=== PATIENT | female | born 1985 | race Caucasian/White ===

== ENCOUNTER 2024-10-23 14:57 | Inpatient (IN) | payer BC ==
[2024-10-23] MEDS: SODIUM CHLORIDE 0.9% 1,000 ML IV SCH ×2 (16:01→18:51)
[2024-10-23] MEDS: ONDANSETRON 4 MG/2 ML VIAL IVP STA (16:01)
[2024-10-23] MEDS: KETOROLAC 15 MG/ML 1 ML VIAL IVP STA (16:03)
[2024-10-23] MEDS: MORPHINE SULFATE 4 MG/ML SYRINGE IVP STA ×2 (16:05→18:48)
[2024-10-23 16:08] LABS: Basophils # (A) 0.05 10*3/uL (0.00-0.10); Basophils % (A) 0.4 %; Eosinophils # (A) 0.06 10*3/uL (0.04-0.35); Eosinophils % (A) 0.5 %; HCT 34.8 % (37.2-46.3); HGB 11.8 g/dL (12.0-15.0); Lymphocytes # (A) 0.90 10*3/uL (0.90-5.00); Lymphocytes % (A) 7.6 %; MCH 33.8 pg (27.0-32.0); MCHC 33.9 g/dL (32.0-37.0); MCV 99.7 fL (80.0-97.0); Monocytes # (A) 0.90 10*3/uL (0.20-1.00); Monocytes % (A) 7.6 %; Neutrophils # (A) 9.83 10*3/uL (1.80-7.70); Neutrophils % (A) 83.6 %; Platelet Count 270 10*3/uL (140-440); RBC 3.49 10*6/uL (4.10-5.20); RDW 20.9 % (11.5-14.5); WBC 11.78 10*3/uL (4.50-10.00)
[2024-10-23 16:18] LABS: ALT 20 U/L (4-34); AST 54 U/L (14-36); African American GFR (CKD) 85 (>60 ml/min/1.73 sqM); Albumin 3.8 g/dL (3.5-5.0); Alkaline Phosphatase 85 U/L (38-126); Anion Gap 16 mmol/L; Blood Urea Nitrogen 16 mg/dL (7-17); Calcium 8.5 mg/dL (8.4-10.2); Carbon Dioxide 15 mmol/L (22-30); Chloride 108 mmol/L (98-107); Glucose 82 mg/dL (74-99); Non-African American GFR(CKD) 74 (>60 ml/min/1.73 sqM); Potassium 3.8 mmol/L (3.5-5.1); Sodium 139 mmol/L (137-145); Total Protein 6.2 g/dL (6.3-8.2)
[2024-10-23 16:18] LABS: Bacteria,Urine Rare /hpf; Bilirubin,Urine Negative (Negative); Blood,Urine Moderate (Negative); Color,Urine Dark Yellow; Glucose,Urine (UA) Negative (Negative); Ketones,Urine Negative (Negative); Leukocyte Esterase,Urine Large (Negative); Mucus,Urine Occasional /hpf; Nitrite,Urine Positive (Negative); PH, Urine 6.5 (5.0-8.0); Protein,Urine Trace (Negative); RBC,Urine 3 /hpf (0-5); Specific Gravity,Urine 1.018 (1.001-1.035); Squamous Epithelial Cell,Urine 3 /hpf (0-4); Urobilinogen,Urine <2.0 mg/dL (<2.0); WBC,Urine >182 /hpf (0-5)
[2024-10-23 16:44] LABS: Lipase 8292 U/L (23-300)
--- NOTE | 2024-10-23 16:50 | ED ---
Abdominal Pain HPI - General Chief Complaint: Abdominal Pain Stated Complaint: L flank pain Time Seen by Provider: 10/23/24 15:15 Source: patient Mode of arrival: ambulatory - History of Present Illness Initial Comments: 39-year-old female with no reported past medical history who presents emergency department with left lower quadrant abdominal pain. States the pain started last night. She has been having some urinary frequency over the past couple of days and therefore thought that she had a urinary tract infection. She started taking Azo. The pain got worse today at approximately 10:30 AM. She has no associated nausea, vomiting or diarrhea. No fevers. No hematuria. No vaginal bleeding or discharge. No diarrhea, constipation, black or bloody stools. [place] States that she has been drinking heavily for the holidays. No other alleviating, precipitating or modifying factors - Related Data Home Medications Medication Instructions Recorded Confirmed Cetirizine HCl [Zyrtec] 10 mg PO DAILY 10/23/24 10/23/24 Naproxen [EC-Naprosyn] 500 mg PO BID PRN 10/23/24 10/23/24 Omeprazole 40 mg PO DAILY 10/23/24 10/23/24 Topiramate 100 mg PO BID 10/23/24 10/23/24 buPROPion HCL [buPROPion HCL SR] 150 mg PO Q12HR 10/23/24 10/23/24 Allergies Allergy/AdvReac Type Severity Reaction Status Date / Time No Known Allergies Allergy Verified 10/23/24 18:31 Review of Systems ROS Statement: Those systems with pertinent positive or pertinent negative responses have been documented in the HPI. ROS Other: All systems not noted in ROS Statement are negative. Past Medical History Past Medical History: No Reported History History of Any Multi-Drug Resistant Organisms: None Reported Past Surgical History: No Surgical Hx Reported Past Psychological History: ADD/ADHD Smoking Status: Current every day smoker Past Alcohol Use History: Occasional Past Drug Use History: None Reported General Exam General appearance: alert, in no apparent distress Head exam: Present: atraumatic, normocephalic, normal inspection Eye exam: Present: normal appearance, PERRL, EOMI. Absent: scleral icterus, conjunctival injection, periorbital swelling ENT exam: Present: normal exam, mucous membranes moist Neck exam: Present: normal inspection. Absent: tenderness, meningismus, lymphadenopathy Respiratory exam: Present: normal lung sounds bilaterally. Absent: respiratory distress, wheezes, rales, rhonchi, stridor Cardiovascular Exam: Present: regular rate, normal rhythm, normal heart sounds. Absent: systolic murmur, diastolic murmur, rubs, gallop, clicks GI/Abdominal exam: Present: soft, tenderness (epigastric and rlq), normal bowel sounds. Absent: distended, guarding, rebound, rigid Extremities exam: Present: normal inspection, full ROM, normal capillary refill. Absent: tenderness, pedal edema, joint swelling, calf tenderness Back exam: Present: normal inspection Neurological exam: Present: alert, oriented X3, CN II-XII intact Psychiatric exam: Present: normal affect, normal mood Skin exam: Present: warm, dry, intact, normal color. Absent: rash Course Vital Signs 10/23/24 10/23/24 10/23/24 14:59 18:57 22:19 Temperature 98.2 F 97.7 F Pulse Rate 108 H 99 94 Respiratory 18 16 17 Rate Blood Pressure 141/98 116/78 131/96 O2 Sat by Pulse 98 95 96 Oximetry Medical Decision Making - Medical Decision Making Was pt. sent in by a medical professional or institution (, PA, PLATEN DRIER OPERATOR, urgent care, hospital, or senior care...) When possible be specific @ -No Did you speak to anyone other than the patient for history (EMS, parent, family, police, friend...)? What history was obtained from this source @ -Spoke with spouse for history Did you review nursing and triage notes (agree or disagree)? Why? @ -I reviewed and agree with nursing and triage notes Were old charts reviewed (outside hosp., previous admission, EMS record, old EKG, old radiological studies, urgent care reports/EKG's, senior care records)? Report findings @ -No old charts were reviewed Differential Diagnosis (chest pain, altered mental status, abdominal pain women, abdominal pain men, vaginal bleeding, weakness, fever, dyspnea, syncope, headache, dizziness, GI bleed, back pain, seizure, CVA, palpatations, mental health, musculoskeletal)? @ -Differential Abdominal Pain Women: Appendicitis, Cholecystitis, diverticulosis, ischemic bowel, pancreatitis, hepatitis, UTI, gastroenteritis, AAA, incarcerated hernia, bowel obstruction, constipation, inflammatory bowel, hepatitis, peptic ulcer disease, splenic infarction, perforated viscus, vulvitis, ovarian torsion, PID, kidney stone, placenta abruption, this is not meant to be an all-inclusive list EKG interpreted by me (3pts min.). @ -Not done X-rays interpreted by me (1pt min.). @ -None done CT interpreted by me (1pt min.). @ -yes which demonstrates acute pancreatitis and a left-sided ureteral stone U/S interpreted by me (1pt. min.). @ -None done What testing was considered but not performed or refused? (CT, X-rays, U/S, labs)? Why? @ -None What meds were considered but not given or refused? Why? @ -None Did you discuss the management of the patient with other professionals ( professionals i.e. , PA, PLATEN DRIER OPERATOR, lab, RT, psych nurse, social media senior associate, surgical appliance fitter, teacher, housing management officer, case preparer and liner)? Give summary @ -Spoke with Dr. Delacruz for admission Was smoking cessation discussed for >3mins.? @ -No Was critical care preformed (if so, how long)? @ -No Were there social determinants of health that impacted care today? How? (Homelessness, low income, unemployed, alcoholism, drug addiction, transportation, low edu. Level, literacy, decrease access to med. care, [place] [facility], rehab)? @ -No Was there de-escalation of care discussed even if they declined (Discuss DNR or withdrawal of care, Hospice)? DNR status @ -No What co-morbidities impacted this encounter? (DM, HTN, Smoking, COPD, CAD, Cancer, CVA, ARF, Chemo, Hep., AIDS, mental health diagnosis, sleep apnea, morbid obesity)? @ -None Was patient admitted / discharged? Hospital course, mention meds given and route, prescriptions, significant lab abnormalities, going to OR and other pertinent info. @ -Upon arrival patient seen and evaluated in room 10. Thorough history and physical exam was performed. IV access was established. Patient was provided with 4 mg of morphine and 4 mg of Zofran for pain and nausea. Laboratory studies are conducted. Patient does have significant elevated lipase. Alcohol is elevated. CT performed which demonstrates pancreatitis and left-sided ureteral stone. Recommended admission for fluids, pain control. Patient was agreeable to this. Spoke with Dr. Sawana for admission Undiagnosed new problem with uncertain prognosis? @ -No Drug Therapy requiring intensive monitoring for toxicity (Heparin, Nitro, Insulin, Cardizem)? @ -No Were any procedures done? @ -No Diagnosis/symptom? @ -Abdominal pain, acute alcohol intoxication, acute pancreatitis, acute left- sided ureteral stone acute UTI Acute, or Chronic, or Acute on Chronic? @ -Acute Uncomplicated (without systemic symptoms) or Complicated (systemic symptoms)? @ -Complicated Side effects of treatment? @ -No Exacerbation, Progression, or Severe Exacerbation? @ -No Poses a threat to life or bodily function? How? (Chest pain, [place], [place], pneumonia, PE, COPD, DKA, ARF, appy, cholecystitis, CVA, Diverticulitis, Homicidal, Suicidal, threat to staff... and all critical care pts) @ -No - Lab Data Result diagrams: 10/23/24 15:53 10/23/24 15:53 Lab Results 10/23/24 10/23/24 10/23/24 Range/Units 15:52 15:52 15:52 WBC (4.50-10.00) 10*3/uL RBC (4.10-5.20) 10*6/uL Hgb (12.0-15.0) g/dL Hct (37.2-46.3) % MCV (80.0-97.0) fL MCH (27.0-32.0) pg MCHC (32.0-37.0) g/dL Plt Count (140-440) 10*3/uL MPV (9.5-12.2) fL Immature Gran % (Auto) % Neutrophils % % Lymphocytes % % Monocytes % % Eosinophils % % Basophils % % Immature Gran # (0.00-0.04) 10*3/uL Neutrophils # (1.80-7.70) 10*3/uL Lymphocytes # (0.90-5.00) 10*3/uL Monocytes # (0.20-1.00) 10*3/uL Eosinophils # (0.04-0.35) 10*3/uL Basophils # (0.00-0.10) 10*3/uL Sodium (137-145) mmol/L Potassium (3.5-5.1) mmol/L Chloride (98-107) mmol/L Carbon Dioxide (22-30) mmol/L Anion Gap mmol/L BUN (7-17) mg/dL Creatinine (0.52-1.04) mg/dL Est GFR (CKD-EPI)AfAm (>60 ml/min/1.73 sqM) Est GFR (CKD-EPI)NonAf (>60 ml/min/1.73 sqM) Glucose (74-99) mg/dL Lactic Ac Sepsis Rflx Plasma Lactic Acid Ronni 2.7 H* (0.7-2.0) mmol/L Calcium (8.4-10.2) mg/dL Total Bilirubin (0.2-1.3) mg/dL AST (14-36) U/L ALT (4-34) U/L Alkaline Phosphatase (38-126) U/L Total Protein (6.3-8.2) g/dL Albumin (3.5-5.0) g/dL Lipase (23-300) U/L Urine Color Dark Yellow Urine Appearance Cloudy H (Clear) Urine pH 6.5 (5.0-8.0) Ur Specific Walden 1.018 (1.001-1.035) Urine Protein Trace H (Negative) Urine Glucose (UA) Negative (Negative) Urine Ketones Negative (Negative) Urine Blood Moderate H (Negative) Urine Nitrite Positive H (Negative) Urine Bilirubin Negative (Negative) Urine Urobilinogen <2.0 (<2.0) mg/dL Ur Leukocyte Esterase Large H (Negative) Urine RBC 3 (0-5) /hpf Urine WBC >182 H (0-5) /hpf Ur Squamous Epith Cells 3 (0-4) /hpf Urine Bacteria Rare H (None) /hpf Urine Mucus Occasional H (None) /hpf Urine HCG, Qual Not Detected (Not Detectd) Serum Alcohol mg/dL 10/23/24 10/23/24 10/23/24 Range/Units 15:53 15:53 16:39 WBC 11.78 H (4.50-10.00) 10*3/uL RBC 3.49 L (4.10-5.20) 10*6/uL Hgb 11.8 L (12.0-15.0) g/dL Hct 34.8 L (37.2-46.3) % MCV 99.7 H (80.0-97.0) fL MCH 33.8 H (27.0-32.0) pg MCHC 33.9 (32.0-37.0) g/dL Plt Count 270 (140-440) 10*3/uL MPV 8.8 L (9.5-12.2) fL Immature Gran % (Auto) 0.3 % Neutrophils % 83.6 % Lymphocytes % 7.6 % Monocytes % 7.6 % Eosinophils % 0.5 % Basophils % 0.4 % Immature Gran # 0.04 (0.00-0.04) 10*3/uL Neutrophils # 9.83 H (1.80-7.70) 10*3/uL Lymphocytes # 0.90 (0.90-5.00) 10*3/uL Monocytes # 0.90 (0.20-1.00) 10*3/uL Eosinophils # 0.06 (0.04-0.35) 10*3/uL Basophils # 0.05 (0.00-0.10) 10*3/uL Sodium 139 (137-145) mmol/L Potassium 3.8 (3.5-5.1) mmol/L Chloride 108 H (98-107) mmol/L Carbon Dioxide 15 L (22-30) mmol/L Anion Gap 16 mmol/L BUN 16 (7-17) mg/dL Creatinine 0.96 (0.52-1.04) mg/dL Est GFR (CKD-EPI)AfAm 85 (>60 ml/min/1.73 sqM) Est GFR (CKD-EPI)NonAf 74 (>60 ml/min/1.73 sqM) Glucose 82 (74-99) mg/dL Lactic Ac Sepsis Rflx Y Plasma Lactic Acid Ronni (0.7-2.0) mmol/L Calcium 8.5 (8.4-10.2) mg/dL Total Bilirubin 0.7 (0.2-1.3) mg/dL AST 54 H (14-36) U/L ALT 20 (4-34) U/L Alkaline Phosphatase 85 (38-126) U/L Total Protein 6.2 L (6.3-8.2) g/dL Albumin 3.8 (3.5-5.0) g/dL Lipase 8292 H (23-300) U/L Urine Color Urine Appearance (Clear) Urine pH (5.0-8.0) Ur Specific [place] (1.001-1.035) Urine Protein (Negative) Urine Glucose (UA) (Negative) Urine Ketones (Negative) Urine Blood (Negative) Urine Nitrite (Negative) Urine Bilirubin (Negative) Urine Urobilinogen (<2.0) mg/dL Ur Leukocyte Esterase (Negative) Urine RBC (0-5) /hpf Urine WBC (0-5) /hpf Ur Squamous Epith Cells (0-4) /hpf Urine Bacteria (None) /hpf Urine Mucus (None) /hpf Urine HCG, Qual (Not Detectd) Serum Alcohol 130 mg/dL Disposition Clinical Impression: Pancreatitis, Alcohol intoxication, Ureteral stone, Abnormal urinalysis Disposition: ADMITTED IP TO THIS [facility] Condition: Stable Is patient prescribed a controlled substance at d/c from ED?: No Time of Disposition: 18:08 Decision to Admit Reason: Admit from EC Decision Date: 10/23/24 Decision Time: 18:08
--- NOTE | 2024-10-23 17:26 | CT ---
EXAMINATION TYPE: CT abdomen pelvis w con DATE OF EXAM: 10/23/2024 5:00 PM COMPARISON: None CLINICAL INDICATION: Female, 39 years old with history of abd pain, llq; LLQ pain since this AM TECHNIQUE: Axial CT abdomen pelvis w con;Sagittal and coronal reformats were created on a separate w orkstation. Contrast used:100ml mL of Isovue 300 with IV Contrast, (none if empty) Oral contrast used: without Oral Contrast (none if empty) CT DLP: 707.7 mGycm, Automated exposure control for dose reduction was used. FINDINGS: LOWER CHEST: Unremarkable ABDOMEN LIVER: Unremarkable GALLBLADDER AND BILE DUCTS: Unremarkable. PANCREAS: Unremarkable. Extensive fat stranding changes in the upper abdomen that the center on the p ancreas. SPLEEN: Unremarkable. ADRENAL GLANDS: Unremarkable. KIDNEYS AND URETERS: Mild right hydronephrosis secondary to 3 mm right ureterovesicular junction calc ulus. No left renal calculus. PELVIS BLADDER: No evidence for wall thickening or mass given limitations of exam. REPRODUCTIVE: Unremarkable. ABDOMEN & PELVIS STOMACH AND BOWEL: No evidence of bowel obstruction. PERITONEUM/RETROPERITONEUM: No evidence of pneumoperitoneum or free fluid. VASCULATURE: No evidence of aortic aneurysm. MUSCULOSKELETAL: No acute osseous abnormalities LYMPH NODES: No gross evidence for lymphadenopathy. SOFT TISSUE/ABDOMINAL WALL: Unremarkable IMPRESSION: 1. Mild right hydronephrosis secondary obstructing 3 mm calculus at the ureterovesicular junction. 2. Extensive fat stranding changes in the upper abdomen correlate with serum lipase to exclude pancr eatitis. This free fluid around the pancreas could be secondary to calyceal rupture from right hydron ephrosis. 3. No evidence for acute process in the Left lower quadrant to explain provided history of left lowe r quadrant pain. [facility], , 10/23/2024 5:23 PM
[2024-10-23] MEDS ORDERED: NALOXONE 0.4 MG/ML 1 ML VIAL IV PRN (18:11)
[2024-10-23] MEDS: cefTRIAXone IN SWFI 1,000 MG/10 ML SYRINGE IVP STA (18:48)
[2024-10-23] MEDS ORDERED: LORazepam 1 MG/0.5 ML VIAL IV PRN ×3 (19:11)
[2024-10-23] MEDS: SODIUM BICARB 8.4% 50 ML SYR (1 MEQ/ML) IV STA (19:41)
[2024-10-23] MEDS: DEXTROSE 5%-0.45% NACL 1,000 ML IV SCH (19:44)
[2024-10-23] MEDS: FOLIC ACID 1 MG TAB PO SCH (19:49)
[2024-10-23] MEDS: HYDROmorphone 1 MG/ML 1 ML SYRINGE IVP PRN (20:20)
[2024-10-23 20:27] LABS: INR 1.2 (<1.2); Prothrombin Time 12.8 sec (10.0-12.5)
[2024-10-23] MEDS: KETOROLAC 15 MG/ML 1 ML VIAL IVP PRN (23:54)
[2024-10-24] MEDS: THIAMINE 100 MG TAB PO SCH (07:49)
[2024-10-24] MEDS: ONDANSETRON 4 MG/2 ML VIAL IVP PRN (08:02)
--- NOTE | 2024-10-24 08:25 | P.HPIM ---
History of Present Illness H&P Date: 10/23/24 Chief Complaint: Abdominal pain This is a 39-year-old female patient with no significant past medical history except for alcohol use who presents to the ED complaining of left lower quadrant abdominal pain. Patient reports that she has been having pain since yesterday associated with urinary frequency for the past few days. Patient thought that she may have a urine infection. She presents today because her pain is worse associated with chills. She denies having any nausea, emesis or diarrhea. No fevers. No vaginal bleeding or discharge. No change in bowel habits. Patient reports that she has been drinking heavily for the holiday she reports not drinking daily but occasionally. Upon arrival to the ED, patient was slightly tachycardic with a heart rate of 108. She was hemodynamically stable otherwise. Labs done showing WBC of 11.78, hemoglobin of 11.8, serum carbon dioxide of 15, lactic acid of 2.7, AST 54, lipase 8200, urine analysis was abnormal, serum alcohol [address] abdomen pelvis with contrast was done showing changes suggestive of acute pancreatitis with mild right hydronephrosis secondary to 3 mm right ureterovesicular junction calculus . Patient received IV Rocephin. Urology was consulted. IV fluids were started and patient will be admitted for management of acute pancreatitis and infected kidney stone Review of system : Negative except for mentioned HPI PE: General: nontoxic, no distress, appears at stated age Derm: warm, dry, intact Head: atraumatic, normocephalic, symmetric Eyes: EOMI, anicteric sclera Mouth: no lip lesion, mucus membranes moist Cardiovascular: S1 S2 reg, no murmur, rubs, or gallops Lungs: CTA bilateral, no rales, no accessory muscle use Abdominal: soft, generalized tenderness upon palpation, no appreciable organomegaly . No guarding or rebound tenderness Extremities: no gross muscle atrophy, no edema, no contractures Neuro: Alert, Oriented, CNII-XII grossly intact, gait normal Psych: well appearing, appropriate affect Assessment and plan : - Infected kidney stone/right-sided hydronephrosis: Patient did not meet sepsis criteria Mild hydronephrosis at the right side Urology consulted and patient will continue with IV Rocephin Pending urine culture -Acute alcoholic pancreatitis: Elevated lipase of 8000 Will start with clear liquid diet Keep patient on D5 half-normal saline IV fluids Pain management - Alcohol abuse/slight elevation in AST: Serum alcohol level of 130 Patient denies history of alcohol withdrawal symptoms Will keep patient on CIWA protocol Thiamine and folic acid daily Counseling was done Will order PT level to calculate the Madrey discrimination score (which is likely low ) Repeat comprehensive metabolic panel -Slight lactic acidosis due to dehydration : Lactic acid of 2.7 Continue with IV fluid hydration and repeat lactic -Non AG metabolic acidosis : Serum CO2 of 15 Will give 2 amp of bicarb and repeat cmp CODE STATUS is full code DVT prophylaxis on SCD Disposition : Home when patient is stable Time spent : 55 min Past Medical History Past Medical History: No Reported History History of Any Multi-Drug Resistant Organisms: None Reported Past Surgical History: No Surgical Hx Reported Past Psychological History: ADD/ADHD Smoking Status: Current every day smoker Past Alcohol Use History: Occasional Past Drug Use History: None Reported Medications and Allergies Home Medications Medication Instructions Recorded Confirmed Type Cetirizine HCl [Zyrtec] 10 mg PO DAILY 10/23/24 10/23/24 History Naproxen [EC-Naprosyn] 500 mg PO BID PRN 10/23/24 10/23/24 History Omeprazole 40 mg PO DAILY 10/23/24 10/23/24 History Topiramate 100 mg PO BID 10/23/24 10/23/24 History buPROPion HCL [buPROPion HCL SR] 150 mg PO Q12HR 10/23/24 10/23/24 History Allergies Allergy/AdvReac Type Severity Reaction Status Date / Time No Known Allergies Allergy Verified 10/23/24 18:31 Physical Exam Vitals: Vital Signs Temp Pulse Resp BP Pulse Ox 10/23/24 18:57 99 16 116/78 95 10/23/24 14:59 98.2 F 108 H 18 141/98 98 Intake and Output 10/23/24 10/23/24 10/23/24 06:59 14:59 22:59 Other: Weight 62.596 kg Results CBC & Chem 7: 10/23/24 15:53 10/23/24 15:53 Labs: Abnormal Lab Results - Last 24 Hours (Table) 10/23/24 10/23/24 10/23/24 Range/Units 15:52 15:52 15:53 WBC 11.78 H (4.50-10.00) 10*3/uL RBC 3.49 L (4.10-5.20) 10*6/uL Hgb 11.8 L (12.0-15.0) g/dL Hct 34.8 L (37.2-46.3) % MCV 99.7 H (80.0-97.0) fL MCH 33.8 H (27.0-32.0) pg MPV 8.8 L (9.5-12.2) fL Neutrophils # 9.83 H (1.80-7.70) 10*3/uL Chloride (98-107) mmol/L Carbon Dioxide (22-30) mmol/L Plasma Lactic Acid Ronni 2.7 H* (0.7-2.0) mmol/L AST (14-36) U/L Total Protein (6.3-8.2) g/dL Lipase (23-300) U/L Urine Appearance Cloudy H (Clear) Urine Protein Trace H (Negative) Urine Blood Moderate H (Negative) Urine Nitrite Positive H (Negative) Ur Leukocyte Esterase Large H (Negative) Urine WBC >182 H (0-5) /hpf Urine Bacteria Rare H (None) /hpf Urine Mucus Occasional H (None) /hpf 10/23/24 Range/Units 15:53 WBC (4.50-10.00) 10*3/uL RBC (4.10-5.20) 10*6/uL Hgb (12.0-15.0) g/dL Hct (37.2-46.3) % MCV (80.0-97.0) fL MCH (27.0-32.0) pg MPV (9.5-12.2) fL Neutrophils # (1.80-7.70) 10*3/uL Chloride 108 H (98-107) mmol/L Carbon Dioxide 15 L (22-30) mmol/L Plasma Lactic Acid Ronni (0.7-2.0) mmol/L AST 54 H (14-36) U/L Total Protein 6.2 L (6.3-8.2) g/dL Lipase 8292 H (23-300) U/L Urine Appearance (Clear) Urine Protein (Negative) Urine Blood (Negative) Urine Nitrite (Negative) Ur Leukocyte Esterase (Negative) Urine WBC (0-5) /hpf Urine Bacteria (None) /hpf Urine Mucus (None) /hpf
[2024-10-24 09:28] LABS: HCT 34.4 % (37.2-46.3); HGB 11.1 g/dL (12.0-15.0); MCH 33.9 pg (27.0-32.0); MCHC 32.3 g/dL (32.0-37.0); MCV 105.2 FL (80.0-97.0); NRBC Per 100 WBC 0 X 10*3/uL (0.00-0.01); Platelet Count 229 X 10*3/uL (140-440); RBC 3.27 X 10*6/uL (4.10-5.20); RDW 21.1 % (11.5-14.5); WBC 10.45 X 10*3/uL (4.50-10.00)
[2024-10-24 10:09] LABS: ALT 17 U/L (8-44); AST 54 U/L (13-35); Albumin 3.6 g/dL (3.8-4.9); Albumin/Globulin Ratio 2.12 Ratio (1.60-3.17); Alkaline Phosphatase 81 U/L (41-126); Anion Gap 17.20 mmol/L (4.00-12.00); BUN/Creat Ratio 15.78 Ratio (12.00-20.00); Blood Urea Nitrogen 14.2 mg/dL (9.0-27.0); Calcium 6.5 mg/dL (8.7-10.3); Carbon Dioxide 17.8 mmol/L (21.6-31.8); Chloride 105 mmol/L (96-109); Globulin 1.7 g/dL (1.6-3.3); Glucose 82 mg/dL (70-110); Potassium 3.7 mmol/L (3.5-5.5); Sodium 140 mmol/L (135-145); Total Protein 5.3 g/dL (6.2-8.2)
[2024-10-24 10:20] LABS: Lipase 1816 U/L (14-63)
[2024-10-24] MEDS: MORPHINE SULFATE 2 MG/ML SYRINGE IVP STA (10:40)
[2024-10-24 10:45] LABS: Basophils # (A) 0.04 X 10*3/uL (0.00-0.10); Basophils % (A) 0.4 %; Eosinophils # (A) 0.06 X 10*3/uL (0.04-0.35); Eosinophils % (A) 0.6 %; Immature Grans, Automated 0.40 %; Lymphocytes # (A) 0.91 X 10*3/uL (0.90-5.00); Lymphocytes % (A) 8.7 %; Macrocytosis (M) 2+ (None Seen); Monocytes # (A) 0.78 X 10*3/uL (0.20-1.00); Monocytes % (A) 7.5 %; Neutrophils # (A) 8.62 X 10*3/uL (1.80-7.70); Neutrophils % (A) 82.4 %
--- NOTE | 2024-10-24 12:27 | XR ---
EXAMINATION TYPE: XR abdomen 1V DATE OF EXAM: 10/24/2024 11:38 AM COMPARISON: CT CLINICAL INDICATION: Female, 39 years old with history of bowel obstruction?; [facility] TECHNIQUE: One radiographic view of the abdomen was obtained. FINDINGS: The bowel gas pattern is nonspecific without dilated loops of small or large bowel. . Fecal material and gas are demonstrated throughout the colon and rectum. There is no evidence for organome hillary or pneumoperitoneum. No acute osseous process. No abnormal calcifications are present. IMPRESSION: Nonspecific bowel gas pattern without radiographic evidence for acute process. [facility], , 10/24/2024 12:25 PM
--- NOTE | 2024-10-24 14:01 | P.PN ---
Subjective Progress Note Date: 10/24/24 Hospital Course: This is a 39-year-old female patient with no significant past medical history except for alcohol use who presents to the ED complaining of left lower quadrant abdominal pain. Patient reports that she has been having pain since yesterday associated with urinary frequency for the past few days. Patient thought that she may have a urine infection. She presents today because her pain is worse associated with chills. She denies having any nausea, emesis or diarrhea. No fevers. No vaginal bleeding or discharge. No change in bowel habits. Patient reports that she has been drinking heavily for the holiday she reports not drinking daily but occasionally. Upon arrival to the ED, patient was slightly tachycardic with a heart rate of 108. She was hemodynamically stable otherwise. Labs done showing WBC of 11.78, hemoglobin of 11.8, serum carbon dioxide of 15, lactic acid of 2.7, AST 54, lipase 8200, urine analysis was abnormal, serum alcohol [address] abdomen pelvis with contrast was done showing changes suggestive of acute pancreatitis with mild right hydronephrosis secondary to 3 mm right ureterovesicular junction calculus . Patient received IV Rocephin. Ur ology was consulted. IV fluids were started and patient will be admitted for management of acute pancreatitis and infected kidney stone 10/24: Seen and examined at bedside, patient is in distress from right-sided flank pain, she tried some clear liquid diet this morning but felt very dizzy. She is afebrile with heart rate in 80s, BP normotensive, morning blood work showed leukocytosis 10.4, hemoglobin 11.1, platelet count normal, sodium and potassium WNL, creatinine 0.9, lipase trending down 1816. No exam was significant for sluggish bowel sounds, abdomen is soft, generalized tenderness. X-ray ordered and showed no acute process. Will keep patient n.p.o. for now and continue IV fluids. Urology recommendations pending. Pertinent positives and negatives as discussed above, a complete review of systems was performed and all other systems are negative. Vitals Signs Reviewed. General: In distress from pain Derm: [warm], [dry] Head: [atraumatic], [normocephalic], [symmetric] Eyes: [EOMI], [no lid lag], [anicteric sclera] Mouth: [no lip lesion], [mucus membranes moist] Cardiovascular: [S1S2 reg], [no murmur] Lungs: [CTA bilateral], [no rhonchi, no rales] , [no accessory muscle use] Abdominal: [Soft, generalized tenderness, sluggish bowel sounds Ext: [no gross muscle atrophy], [no edema], [no contractures] Neuro: [ CN II-XI grossly intact], [no focal neuro deficits] Psych: [Alert], [oriented], [appropriate affect] Assessment and Plan: Obstructing nephrolithiasis on the right with associated mild right hydronephrosis Infected kidney stone - Continue ceftriaxone 1 g daily SOT 10/23 -Follow-up urine and blood cultures -CBC and BMP daily - Neurology consulted, appreciate recommendations - Continue IV fluids with D5 [id number] cc/h Acute alcoholic pancreatitis Alcohol use disorder Impending withdrawal - N.p.o. for now, discussed with RN -Continue IV fluids as above -Daily blood work as above -Continue CIWA with Ativan, daily thiamine 100 mg and folic acid 1 mg, social work consulted DVT ppx: SCD Code status: Full code Anticipated discharge place: TBD Anticipated discharge time: TBD Objective - Vital Signs Vital signs: Vital Signs Temp 98.2 F 10/24/24 07:11 Pulse 100 10/24/24 07:11 Resp 17 10/24/24 07:11 BP 129/89 10/24/24 07:11 Pulse Ox 97 10/24/24 07:11 FiO2 Intake & Output 10/23/24 10/24/24 10/24/24 18:59 06:59 18:59 Weight 62.596 kg 62.596 kg Other: Voiding Method Toilet # Voids 2 1 - Labs CBC & Chem 7: 10/24/24 03:36 10/24/24 03:36 Labs: Abnormal Lab Results - Last 24 Hours (Table) 10/23/24 10/23/24 10/23/24 Range/Units 15:52 15:52 15:53 WBC 11.78 H (4.50-10.00) 10*3/uL RBC 3.49 L (4.10-5.20) 10*6/uL Hgb 11.8 L (12.0-15.0) g/dL Hct 34.8 L (37.2-46.3) % MCV 99.7 H (80.0-97.0) fL MCH 33.8 H (27.0-32.0) pg RDW (11.5-14.5) % MPV 8.8 L (9.5-12.2) fL Neutrophils # 9.83 H (1.80-7.70) 10*3/uL Macrocytosis (manual) (None Seen) PT (10.0-12.5) sec INR (<1.2) Chloride (98-107) mmol/L Carbon Dioxide (22-30) mmol/L Anion Gap (4.00-12.00) mmol/L Plasma Lactic Acid Ronni 2.7 H* (0.7-2.0) mmol/L Calcium (8.7-10.3) mg/dL AST (14-36) U/L Total Protein (6.3-8.2) g/dL Albumin (3.8-4.9) g/dL Lipase (23-300) U/L Urine Appearance Cloudy H (Clear) Urine Protein Trace H (Negative) Urine Blood Moderate H (Negative) Urine Nitrite Positive H (Negative) Ur Leukocyte Esterase Large H (Negative) Urine WBC >182 H (0-5) /hpf Urine Bacteria Rare H (None) /hpf Urine Mucus Occasional H (None) /hpf 10/23/24 10/23/24 10/23/24 Range/Units 15:53 18:55 19:31 WBC (4.50-10.00) 10*3/uL RBC (4.10-5.20) 10*6/uL Hgb (12.0-15.0) g/dL Hct (37.2-46.3) % MCV (80.0-97.0) fL MCH (27.0-32.0) pg RDW (11.5-14.5) % MPV (9.5-12.2) fL Neutrophils # (1.80-7.70) 10*3/uL Macrocytosis (manual) (None Seen) PT 12.8 H (10.0-12.5) sec INR 1.2 H (<1.2) Chloride 108 H (98-107) mmol/L Carbon Dioxide 15 L (22-30) mmol/L Anion Gap (4.00-12.00) mmol/L Plasma Lactic Acid Ronni 2.4 H* (0.7-2.0) mmol/L Calcium (8.7-10.3) mg/dL AST 54 H (14-36) U/L Total Protein 6.2 L (6.3-8.2) g/dL Albumin (3.8-4.9) g/dL Lipase 8292 H (23-300) U/L Urine Appearance (Clear) Urine Protein (Negative) Urine Blood (Negative) Urine Nitrite (Negative) Ur Leukocyte Esterase (Negative) Urine WBC (0-5) /hpf Urine Bacteria (None) /hpf Urine Mucus (None) /hpf 10/24/24 10/24/24 Range/Units 03:36 03:36 WBC 10.45 H (4.50-10.00) 10*3/uL RBC 3.27 L (4.10-5.20) 10*6/uL Hgb 11.1 L (12.0-15.0) g/dL Hct 34.4 L (37.2-46.3) % MCV 105.2 H (80.0-97.0) fL MCH 33.9 H (27.0-32.0) pg RDW 21.1 H (11.5-14.5) % MPV 9.3 L (9.5-12.2) fL Neutrophils # 8.62 H (1.80-7.70) 10*3/uL Macrocytosis (manual) 2+ A (None Seen) PT (10.0-12.5) sec INR (<1.2) Chloride (98-107) mmol/L Carbon Dioxide 17.8 L (22-30) mmol/L Anion Gap 17.20 H (4.00-12.00) mmol/L Plasma Lactic Acid Ronni (0.7-2.0) mmol/L Calcium 6.5 L (8.7-10.3) mg/dL AST 54 H (14-36) U/L Total Protein 5.3 L (6.3-8.2) g/dL Albumin 3.6 L (3.8-4.9) g/dL Lipase 1816 H (23-300) U/L Urine Appearance (Clear) Urine Protein (Negative) Urine Blood (Negative) Urine Nitrite (Negative) Ur Leukocyte Esterase (Negative) Urine WBC (0-5) /hpf Urine Bacteria (None) /hpf Urine Mucus (None) /hpf
[2024-10-24] MEDS: MORPHINE SULFATE 2 MG/ML SYRINGE IVP PRN (17:02)
[2024-10-24] MEDS: HYDROmorphone 1 MG/ML 1 ML SYRINGE IVP PRN (18:40)
[2024-10-25 08:56] LABS: Basophils # (A) 0.03 X 10*3/uL (0.00-0.10); Basophils % (A) 0.2 %; Eosinophils # (A) 0.18 X 10*3/uL (0.04-0.35); Eosinophils % (A) 1.4 %; HCT 32.9 % (37.2-46.3); HGB 10.3 g/dL (12.0-15.0); Immature Grans, Automated 0.40 %; Lymphocytes # (A) 0.87 X 10*3/uL (0.90-5.00); Lymphocytes % (A) 6.6 %; MCH 32.9 pg (27.0-32.0); MCHC 31.3 g/dL (32.0-37.0); MCV 105.1 FL (80.0-97.0); Monocytes # (A) 0.94 X 10*3/uL (0.20-1.00); Monocytes % (A) 7.1 %; NRBC Per 100 WBC 0 X 10*3/uL (0.00-0.01); Neutrophils # (A) 11.11 X 10*3/uL (1.80-7.70); Neutrophils % (A) 84.3 %; Platelet Count 216 X 10*3/uL (140-440); RBC 3.13 X 10*6/uL (4.10-5.20); RDW 21.5 % (11.5-14.5); WBC 13.18 X 10*3/uL (4.50-10.00)
[2024-10-25 09:51] LABS: ALT 12 U/L (8-44); AST 42 U/L (13-35); Albumin 3.3 g/dL (3.8-4.9); Albumin/Globulin Ratio 1.94 Ratio (1.60-3.17); Alkaline Phosphatase 91 U/L (41-126); Anion Gap 13.80 mmol/L (4.00-12.00); BUN/Creat Ratio 11.11 Ratio (12.00-20.00); Blood Urea Nitrogen 10.0 mg/dL (9.0-27.0); Calcium 5.7 mg/dL (8.7-10.3); Carbon Dioxide 21.2 mmol/L (21.6-31.8); Chloride 104 mmol/L (96-109); Globulin 1.7 g/dL (1.6-3.3); Glucose 109 mg/dL (70-110); Potassium 3.1 mmol/L (3.5-5.5); Sodium 139 mmol/L (135-145); Total Protein 5.0 g/dL (6.2-8.2)
--- NOTE | 2024-10-25 11:08 | P.PN ---
Subjective Progress Note Date: 10/25/24 Hospital Course: This is a 39-year-old female patient with no significant past medical history except for alcohol use who presents to the ED complaining of left lower quadrant abdominal pain. Patient reports that she has been having pain since yesterday associated with urinary frequency for the past few days. Patient thought that she may have a urine infection. She presents today because her pain is worse associated with chills. She denies having any nausea, emesis or diarrhea. No fevers. No vaginal bleeding or discharge. No change in bowel habits. Patient reports that she has been drinking heavily for the holiday she reports not drinking daily but occasionally. Upon arrival to the ED, patient was slightly tachycardic with a heart rate of 108. She was hemodynamically stable otherwise. Labs done showing WBC of 11.78, hemoglobin of 11.8, serum carbon dioxide of 15, lactic acid of 2.7, AST 54, lipase 8200, urine analysis was abnormal, serum alcohol [address] abdomen pelvis with contrast was done showing changes suggestive of acute pancreatitis with mild right hydronephrosis secondary to 3 mm right ureterovesicular junction calculus . Patient received IV Rocephin. Ur ology was consulted. IV fluids were started and patient will be admitted for management of acute pancreatitis and infected kidney stone 10/24, she tried some clear liquid diet this morning but felt very dizzy, abdominal was significant for sluggish bowel sounds, abdomen is soft, generalized tenderness. X-ray ordered and showed no acute process. Will keep patient n.p.o. for now and continue IV fluids. Urology recommendations pending. 10/25: Seen examined at bedside, no acute events overnight. Patient feels somewhat better, she is still on the right side pain as well as epigastric pain, and mild nausea without vomiting. Was able to take shower in the evening. She states that she has not had a bowel movement or has been passing gas. On abdominal exam tenderness has decreased, bowel sounds present and active, patient would like to try clear liquid diet, Bentyl ordered for abdominal cramp s. Urology evaluation pending, patient was not seen yet, discussed with RN, urology consulted to be notified regarding consultation again. Patient is afebrile with heart rate in 60s, normotensive, on room air. WBC trended up to 13.1, hemoglobin 10.8, MCV elevated 105. Platelet count normal, sodium WNL, potassium low 3.1, will replace, creatinine stays normal, calcium low 5.7, AST trending down 42 Pertinent positives and negatives as discussed above, a complete review of systems was performed and all other systems are negative. Vitals Signs Reviewed. General:not in distress Derm: [warm], [dry] Head: [atraumatic], [normocephalic], [symmetric] Eyes: [EOMI], [no lid lag], [anicteric sclera] Mouth: [no lip lesion], [mucus membranes moist] Cardiovascular: [S1S2 reg], [no murmur] Lungs: [CTA bilateral], [no rhonchi, no rales] , [no accessory muscle use] Abdominal: [Soft, distended, epigastric tenderness,active bowel sounds Ext: [no gross muscle atrophy], [no edema], [no contractures] Neuro: [ CN II-XI grossly intact], [no focal neuro deficits] Psych: [Alert], [oriented], [appropriate affect] Assessment and Plan: Obstructing nephrolithiasis on the right with associated mild right hydronephrosis Infected kidney stone - Continue ceftriaxone 1 g daily SOT 10/23 -Follow-up urine and blood cultures -CBC and BMP daily - urology consulted, appreciate recommendations - Continue IV fluids with D5 [id number] cc/h Acute alcoholic pancreatitis Alcohol use disorder Impending withdrawal Elevated liver enzyme likely due to alcohol use disorder - Resume CLD -Continue IV fluids as above -Daily blood work as above -Continue CIWA with Ativan, daily thiamine 100 mg and folic acid 1 mg, social work consulted -Pain control with Dilaudid 1 mg every 3 hours as needed, morphine 1 mg every 4 hours as needed, Toradol 15 mg IV every 6 hours as needed -Ordered Bentyl for abdominal cramps 10 mg p.o. 4 times daily as needed Macrocytic anemia -Will check vitamin B12, folate, daily CBC Hypocalcemia Hypokalemia -Replaced with 40 mEq of oral potassium, monitor BMP daily -1 g of calcium carbonate today and tomorrow, monitor daily BMP, will check vitamin D, PTH DVT ppx: SCD Code status: Full code Anticipated discharge place: TBD Anticipated discharge time: TBD Objective - Vital Signs Vital signs: Vital Signs Temp 99.1 F 10/25/24 07:05 Pulse 60 10/25/24 07:05 Resp 17 10/25/24 07:05 BP 117/84 10/25/24 07:05 Pulse Ox 98 10/25/24 07:05 FiO2 Intake & Output 10/24/24 10/25/24 10/25/24 18:59 06:59 18:59 Intake Total 1425 900 Balance 1425 900 Intake: Intake, IV Titration 1425 900 Amount Dextrose 5%-0.45% NaCl 1, 1375 900 000 ml @ 125 mls/hr IV . Q8H [facility] Rx#:[id number] cefTRIAXone 1 gm In 50 Sodium Chloride 0.9% 50 ml @ 100 mls/hr IVPB Q24H [facility] Rx#:[id number] Oral 0 Other: # Voids 4 4 - Labs CBC & Chem 7: 10/25/24 05:37 10/25/24 05:37 Labs: Abnormal Lab Results - Last 24 Hours (Table) 10/25/24 10/25/24 Range/Units 05:37 05:37 WBC 13.18 H (4.50-10.00) X 10*3/uL RBC 3.13 L (4.10-5.20) X 10*6/uL Hgb 10.3 L (12.0-15.0) g/dL Hct 32.9 L (37.2-46.3) % MCV 105.1 H (80.0-97.0) FL MCH 32.9 H (27.0-32.0) pg MCHC 31.3 L (32.0-37.0) g/dL RDW 21.5 H (11.5-14.5) % Immature Gran # 0.05 H (0.00-0.04) X 10*3/uL Neutrophils # 11.11 H (1.80-7.70) X 10*3/uL Lymphocytes # 0.87 L (0.90-5.00) X 10*3/uL Potassium 3.1 L (3.5-5.5) mmol/L Carbon Dioxide 21.2 L (21.6-31.8) mmol/L Anion Gap 13.80 H (4.00-12.00) mmol/L BUN/Creatinine Ratio 11.11 L (12.00-20.00) Ratio Calcium 5.7 A* (8.7-10.3) mg/dL AST 42 H (13-35) U/L Total Protein 5.0 L (6.2-8.2) g/dL Albumin 3.3 L (3.8-4.9) g/dL
[2024-10-25] MEDS: CALCIUM CARBONATE 500 MG CHEWABLE PO SCH (11:10)
[2024-10-25] MEDS: DICYCLOMINE 10 MG CAP PO PRN (11:10)
[2024-10-25] MEDS: POTASSIUM CHLORIDE ER 20 MEQ TAB.ER PO STA (11:10)
--- NOTE | 2024-10-25 16:55 | P.PN ---
Subjective Progress Note Date: 10/25/24 This is a 39-year-old female admitted to the hospital with left-sided ureteral stone and possible pancreatitis. She indicated she has been experiencing left upper abdominal/flank/epigastric pain for the past couple of days, she presented to the ER for that. Denies any dysuria, gross hematuria, nausea or vomiting. No previous history of kidney stones. She underwent a CT abdomen and pelvis which showed evidence of a 3 mm left-sided distal stone with mild hydronephrosis, there was stranding around the kidney and the pancreas. This morning on evaluation she indicated she she still having some left flank pain but it mainly her pain is in the left upper abdomen and epigastric area. Of note her lipase yesterday was 1800. Objective - Vital Signs Vital signs: Vital Signs Temp 98.2 F 10/25/24 13:19 Pulse 89 10/25/24 13:19 Resp 18 10/25/24 13:19 BP 108/76 10/25/24 13:19 Pulse Ox 98 10/25/24 13:19 FiO2 Intake & Output 10/24/24 10/25/24 10/25/24 18:59 06:59 18:59 Intake Total 1425 900 Balance 1425 900 Intake: Intake, IV Titration 1425 900 Amount Dextrose 5%-0.45% NaCl 1, 1375 900 000 ml @ 125 mls/hr IV . Q8H [facility] Rx#:[id number] cefTRIAXone 1 gm In 50 Sodium Chloride 0.9% 50 ml @ 100 mls/hr IVPB Q24H [facility] Rx#:[id number] Oral 0 Other: # Voids 4 4 - Constitutional General appearance: Present: no acute distress - Gastrointestinal General gastrointestinal: Present: soft, tenderness (epigastric, left upper abdomen ). Absent: distended - Psychiatric Psychiatric: Present: A&O x's 3 - Labs CBC & Chem 7: 10/25/24 05:37 10/25/24 05:37 Labs: Abnormal Lab Results - Last 24 Hours (Table) 10/25/24 10/25/24 Range/Units 05:37 05:37 WBC 13.18 H (4.50-10.00) X 10*3/uL RBC 3.13 L (4.10-5.20) X 10*6/uL Hgb 10.3 L (12.0-15.0) g/dL Hct 32.9 L (37.2-46.3) % MCV 105.1 H (80.0-97.0) FL MCH 32.9 H (27.0-32.0) pg MCHC 31.3 L (32.0-37.0) g/dL RDW 21.5 H (11.5-14.5) % Immature Gran # 0.05 H (0.00-0.04) X 10*3/uL Neutrophils # 11.11 H (1.80-7.70) X 10*3/uL Lymphocytes # 0.87 L (0.90-5.00) X 10*3/uL Potassium 3.1 L (3.5-5.5) mmol/L Carbon Dioxide 21.2 L (21.6-31.8) mmol/L Anion Gap 13.80 H (4.00-12.00) mmol/L BUN/Creatinine Ratio 11.11 L (12.00-20.00) Ratio Calcium 5.7 A* (8.7-10.3) mg/dL AST 42 H (13-35) U/L Total Protein 5.0 L (6.2-8.2) g/dL Albumin 3.3 L (3.8-4.9) g/dL Assessment and Plan Assessment: 39-year-old female admitted to the hospital with left ureteral stone, and pain keratitis. Would not expect the ureteral stone to cause elevation of lipase to 1800, at this point patient's pain is mainly in the left flank epigastric and left upper abdomen area, it is difficult to exclude the stone as the cause of her pain versus the pancreatitis. From urology standpoint stone is fairly small hide chance of spontaneous passage. At this point recommend continuing hydration and strain urine. Will keep n.p.o. past midnight and reassess tomorrow morning.
[2024-10-25] MEDS: TOPIRAMATE 100 MG TAB PO SCH (20:45)
[2024-10-25] MEDS: buPROPion SR 150 MG TABLET.ER PO SCH (20:45)
[2024-10-26 08:18] LABS: Basophils # (A) 0.03 X 10*3/uL (0.00-0.10); Basophils % (A) 0.2 %; Eosinophils # (A) 0.16 X 10*3/uL (0.04-0.35); Eosinophils % (A) 1.1 %; HCT 30.1 % (37.2-46.3); HGB 9.3 g/dL (12.0-15.0); Immature Grans, Automated 0.70 %; Lymphocytes # (A) 0.91 X 10*3/uL (0.90-5.00); Lymphocytes % (A) 6.0 %; MCH 33.0 pg (27.0-32.0); MCHC 30.9 g/dL (32.0-37.0); MCV 106.7 FL (80.0-97.0); Monocytes # (A) 1.13 X 10*3/uL (0.20-1.00); Monocytes % (A) 7.4 %; NRBC Per 100 WBC 0 X 10*3/uL (0.00-0.01); Neutrophils # (A) 12.84 X 10*3/uL (1.80-7.70); Neutrophils % (A) 84.6 %; Platelet Count 219 X 10*3/uL (140-440); RBC 2.82 X 10*6/uL (4.10-5.20); RDW 21.1 % (11.5-14.5); WBC 15.17 X 10*3/uL (4.50-10.00)
[2024-10-26 08:52] LABS: Vitamin B12 587.0 pg/mL (200.0-944.0)
[2024-10-26] MEDS: LORATADINE 10 MG TAB PO SCH (09:01)
[2024-10-26] MEDS: PANTOPRAZOLE 40 MG TABLET PO SCH (09:02)
--- NOTE | 2024-10-26 09:19 | P.PN ---
Subjective Progress Note Date: 10/26/24 Principal diagnosis: Right ureteral calculus The patient states that she is feeling somewhat better but remains uncomfortable. Her primary complaint is left-sided abdominal and flank pain associated with abdominal bloating. She reports pain following micturition, along with increased urinary frequency. Objective - Vital Signs Vital signs: Vital Signs Temp 98.9 F 10/26/24 00:45 Pulse 103 H 10/26/24 00:45 Resp 16 10/26/24 00:45 BP 124/88 10/26/24 00:45 Pulse Ox 98 10/26/24 00:45 FiO2 Intake & Output 10/25/24 10/26/24 10/26/24 18:59 06:59 18:59 Intake Total 1765 Balance 1765 Intake: Intake, IV Titration 1425 Amount Dextrose 5%-0.45% NaCl 1, 1375 000 ml @ 125 mls/hr IV . Q8H [facility] Rx#:[id number] cefTRIAXone 1 gm In 50 Sodium Chloride 0.9% 50 ml @ 100 mls/hr IVPB Q24H [facility] Rx#:[id number] Oral 340 Other: Voiding Method Toilet # Voids 4 2 - Constitutional General appearance: Present: average body habitus, cooperative, no acute distress - Gastrointestinal Gastrointestinal Comment(s): Soft, mildly distended, non-tender, no mass - Psychiatric Psychiatric: Present: A&O x's 3 - Labs CBC & Chem 7: 10/26/24 02:43 10/25/24 05:37 Labs: Abnormal Lab Results - Last 24 Hours (Table) 10/25/24 10/26/24 Range/Units 05:37 02:43 WBC 15.17 H (4.50-10.00) X 10*3/uL RBC 2.82 L (4.10-5.20) X 10*6/uL Hgb 9.3 L (12.0-15.0) g/dL Hct 30.1 L (37.2-46.3) % MCV 106.7 H (80.0-97.0) FL MCH 33.0 H (27.0-32.0) pg MCHC 30.9 L (32.0-37.0) g/dL RDW 21.1 H (11.5-14.5) % Immature Gran # 0.10 H (0.00-0.04) X 10*3/uL Neutrophils # 12.84 H (1.80-7.70) X 10*3/uL Monocytes # 1.13 H (0.20-1.00) X 10*3/uL Potassium 3.1 L (3.5-5.5) mmol/L Carbon Dioxide 21.2 L (21.6-31.8) mmol/L Anion Gap 13.80 H (4.00-12.00) mmol/L BUN/Creatinine Ratio 11.11 L (12.00-20.00) Ratio Calcium 5.7 A* (8.7-10.3) mg/dL AST 42 H (13-35) U/L Total Protein 5.0 L (6.2-8.2) g/dL Albumin 3.3 L (3.8-4.9) g/dL Assessment and Plan (1) Ureteral stone Current Visit: Yes Status: Acute Code(s): N20.1 - CALCULUS OF URETER SNOMED Code(s): 91273794 (2) Hydronephrosis with renal and ureteral calculous obstruction Current Visit: Yes Status: Acute Code(s): N13.2 - HYDRONEPHROSIS WITH RENAL AND URETERAL CALCULOUS OBSTRUCTION SNOMED Code(s): 170665001 Plan: I reviewed the patient's CT scan, and had a lengthy discussion with her regarding her obstructing ureteral calculus. It is my belief that her abdominal pain may be more likely to be due to pancreatitis, given that it is predominantly left-sided. I explained to her that the bloating might be the result of the obstructing calculus. We discussed ureteroscopic removal of the calculus, specifically pros, cons, and risks. I explained to her that her calculus has a 95% chance of spontaneous passage. She requests ureteroscopic removal of the calculus, and I will attempt to arrange this to be done later today.
[2024-10-26 09:34] LABS: ALT 8 U/L (8-44); AST 33 U/L (13-35); Albumin 3.1 g/dL (3.8-4.9); Albumin/Globulin Ratio 1.63 Ratio (1.60-3.17); Alkaline Phosphatase 90 U/L (41-126); Anion Gap 11.90 mmol/L (4.00-12.00); BUN/Creat Ratio 6.86 Ratio (12.00-20.00); Blood Urea Nitrogen 4.8 mg/dL (9.0-27.0); Calcium 5.7 mg/dL (8.7-10.3); Carbon Dioxide 19.1 mmol/L (21.6-31.8); Chloride 104 mmol/L (96-109); Globulin 1.9 g/dL (1.6-3.3); Glucose 93 mg/dL (70-110); Potassium 3.1 mmol/L (3.5-5.5); Sodium 135 mmol/L (135-145); Total Protein 5.0 g/dL (6.2-8.2)
[2024-10-26] MEDS: POTASSIUM CHLORIDE 10 MEQ in WATER FOR INJECTION 1 100ML.BAG IVPB SCH (12:38)
[2024-10-26] MEDS: CALCIUM GLUCONATE IN NACL 2 GM in SALINE 1 100ML.BAG IVPB SCH (12:40)
[2024-10-26] MEDS: IV FLUID CONTINUATION 1,000 ML IV ONE (16:22)
--- NOTE | 2024-10-26 16:47 | P.PN ---
Subjective Progress Note Date: 10/26/24 Patient was seen and examined. Reports 6/10 abdominal pain. Plans for cystoscopy with right ureteral stent insertion today. CBC, CMP significant for WBC 15.17, RBC 2.82, Hg 9.3, Hct 30.1, MCV 106.7, K 3.1, bicarb 19.1, BUN 4.8, Ca 5.7, alb 3.1. B12 587. Vit D 35.4. PTH 19.5. General: non toxic, no distress, appears at stated age Derm: warm, dry Head: atraumatic, normocephalic, symmetric Eyes: EOMI, no lid lag, anicteric sclera Mouth: no lip lesion, mucus membranes moist Cardiovascular: S1S2 tachy, no murmur Lungs: Decreased BS bilateral, no rhonchi, no rales , no accessory muscle use Ext: no gross muscle atrophy, no edema, no contractures Neuro: no focal neuro deficits Psych: Alert, oriented, appropriate affect Based on my assessment of this patient, this patient meets a high complexity level of care. Sepsis due to complicated UTI from obstructing nephrolithiasis with right hydronephrosis: Urology plans for cystoscopy and right ureteral stent today with Urology. Order BCx + UCx. IV hydration as below. Telemetry monitoring. Alcohol induced pancreatitis: Pain management with Toradol 15 mg IV Q6H PRN, Dilaudid 1 mg IV Q3H PRN. D5 1/2 NS at 125 cc/hr. CLD and advance as tolerated. Hypocalcemia: Check ionized Ca. 4g Ca gluconate x 1. Hypokalemia: KCl 40 meq IV x 1. Macrocytic anemia likely due to EtOH abuse Alcohol withdrawal: CIWA protocol with Ativan PRN per protocol. CODE STATUS: FULL CODE DVT Prophylaxis: Heparin SQ GI Prophylaxis: Designated medical POA if patient is not able to make medical decisions for themselves: I have reviewed the following analysis consultant notes: Urology. I have reviewed the results of the following tests: CBC, CMP. I have ordered the following tests: CBC and CMP in the AM along with Mag. BCx. UCx. I have discussed the care of this patient with the following independent historian: Case management. RN. I have discussed the management of this patient with the following physician: Objective - Vital Signs Vital signs: Vital Signs Temp 98.2 F 10/26/24 15:27 Pulse 92 10/26/24 16:31 Resp 16 10/26/24 16:31 BP 140/103 10/26/24 16:31 Pulse Ox 98 10/26/24 16:31 FiO2 Intake & Output 10/25/24 10/26/24 10/26/24 18:59 06:59 18:59 Intake Total 1765 Balance 1765 Intake: Intake, IV Titration 1425 Amount Dextrose 5%-0.45% NaCl 1, 1375 000 ml @ 125 mls/hr IV . Q8H [facility] Rx#:[id number] cefTRIAXone 1 gm In 50 Sodium Chloride 0.9% 50 ml @ 100 mls/hr IVPB Q24H [facility] Rx#:[id number] Oral 340 Other: Voiding Method Toilet Toilet # Voids 4 2 5 - Labs CBC & Chem 7: 10/26/24 02:43 10/26/24 02:43 Labs: Abnormal Lab Results - Last 24 Hours (Table) 10/26/24 10/26/24 10/26/24 Range/Units 02:43 02:43 10:08 WBC 15.17 H (4.50-10.00) X 10*3/uL RBC 2.82 L (4.10-5.20) X 10*6/uL Hgb 9.3 L (12.0-15.0) g/dL Hct 30.1 L (37.2-46.3) % MCV 106.7 H (80.0-97.0) FL MCH 33.0 H (27.0-32.0) pg MCHC 30.9 L (32.0-37.0) g/dL RDW 21.1 H (11.5-14.5) % Immature Gran # 0.10 H (0.00-0.04) X 10*3/uL Neutrophils # 12.84 H (1.80-7.70) X 10*3/uL Monocytes # 1.13 H (0.20-1.00) X 10*3/uL Potassium 3.1 L (3.5-5.5) mmol/L Carbon Dioxide 19.1 L (21.6-31.8) mmol/L BUN 4.8 L (9.0-27.0) mg/dL BUN/Creatinine Ratio 6.86 L (12.00-20.00) Ratio Calcium 5.7 A* (8.7-10.3) mg/dL Ionized Calcium Katya 3.5 L* (4.5-5.3) mg/dL Total Protein 5.0 L (6.2-8.2) g/dL Albumin 3.1 L (3.8-4.9) g/dL
[2024-10-26] MEDS: MIDAZOLAM 2 MG/2 ML VIAL IV ONE (17:03)
[2024-10-26] MEDS ORDERED: HYDROmorphone (PF) 1 MG/ML ONE (17:48)
[2024-10-26] MEDS ORDERED: PROPOFOL 10 MG/ML 20 ML VIAL IV ONE (17:48)
[2024-10-26] MEDS: IOPAMIDOL-370 100ML BTL MISCELLANE ONE ×2 (18:10)
--- NOTE | 2024-10-26 18:37 | P.OP ---
Date of Procedure: 10/26/24 Preoperative Diagnosis: Right ureteral calculus, UTI Postoperative Diagnosis: Same Procedure(s) Performed: Cystoscopy, right retrograde pyelogram, right ureteroscopy with removal of right ureteral calculus, right ureteral stent insertion Anesthesia: MAC Surgeon: Alex Poole Estimated Blood Loss (ml): 0 IV fluids (ml): 200 Pathology: other (Right ureteral calculus, sent for chemical analysis) Condition: stable Disposition: PACU Indications for Procedure: The patient is a 39-year-old white female admitted with abdominal pain. Laboratory values are consistent with pancreatitis, but she has been found to have moderate right hydroureteronephrosis due to a 2 mm right UVJ calculus. Urinalysis is suggestive of a UTI, so she now comes for right ureteral stent insertion. Operative Findings: 2 mm right distal ureteral calculus causing right hydroureteronephrosis. Calculus successfully removed. Description of Procedure: The patient was taken to the operating room and placed in the dorsolithotomy position, with legs supported in Malcolm stirrups. The external genitalia was prepped and draped sterilely. The 30 lens was used to introduce the 22-Sammarinese Storz cystoscopic sheath through the urethra and into the bladder under direct vision. The bladder was examined in its entirety. Both ureteral orifices were normal anatomic location and configuration. No tumors or foreign bodies were seen. Using a 10 Sammarinese cone-tip catheter, a right retrograde pyelogram was performed. There was evidence of moderate right hydroureteronephrosis, down to the UVJ. Slight irregularity was noted within the distal ureter, and it was not possible to determine definitively whether or not the calculus had passed. Therefore, the cystoscope was removed and the [facility] semirigid ureteroscope was advanced into the bladder. The right ureteral orifice was cannulated, and the ureteroscope was slowly advanced under direct vision. A small clot was seen, and inspection of the clot revealed that there was a calculus adherent to it. As the ureteroscope was removed, the clot/catheter passed distally into the bladder. Ureteroscopy was repeated, and no additional calculi were seen. A 0.035 inch Glidewire was passed through the ureteroscope and up to the right renal pelvis, where it coiled. The ureteroscope was removed. The Glidewire was backloaded into the cystoscope, which was passed into the bladder. A 24 cm, 4.8 Sammarinese double-J ureteral stent was placed over the wire. Proper stent positioning was verified fluoroscopically and endoscopically. The bladder was emptied and the cystoscope removed. The patient tolerated the procedure well and was taken to the recovery room in stable condition. SOUMYA HOWE Report: Procedure Acuity: Urgent Stone Size and Location: 2 mm, right distal ureter Ureteral Dilation: No Ureteral Access Sheath Used: No Stone Sent for Analysis: Yes All Stones/Fragments Were Removed: Yes Complications: No Preoperative Antibiotics Given: Yes Stent Placed: Yes If Stent Placed, Was String Left Attached: No If Stent Placed, When is it to be Removed: 1 week Discharge Medications: Toradol
--- NOTE | 2024-10-26 19:00 | FL ---
EXAMINATION TYPE: FL guidance operating room DATE OF EXAM: 10/26/2024 6:43 PM COMPARISON: Pre Operative Images if available both CT/MRI or plain film CLINICAL INDICATION: Female, 39 years old with history of CYSTOSCOPY INSERTION RT URETERAL STENT; TECHNIQUE: FL guidance operating room, multiple fluoroscopic images provided for procedure. DAP: 2.7250 mGym2 Gycm2 uGym2 cGycm2 or equivalent. FINDINGS: Multiple intraoperative fluoroscopic images were taken resulting in ureteral stent placement with sup erior pigtail in appropriate position projecting over the renal pelvis. No immediate intraoperative c omplication. Multilevel degeneration changes throughout the spine. IMPRESSION: 1. No evidence for intraoperative complication. 2. Please see the operative/procedural note for further details. [facility], , 10/26/2024 6:58 PM
[2024-10-26] MEDS: CYCLOBENZAPRINE 5 MG TAB PO STA (22:28)
[2024-10-27 02:48] VITALS: RESP 18
[2024-10-27 03:17] LABS: HCT 27.0 % (37.2-46.3); MCH 34.4 pg (27.0-32.0); MCHC 33.3 g/dL (32.0-37.0); MCV 103.1 fL (80.0-97.0); Platelet Count 267 10*3/uL (140-440); RBC 2.62 10*6/uL (4.10-5.20); RDW 20.4 % (11.5-14.5); WBC 17.81 10*3/uL (4.50-10.00)
[2024-10-27 03:29] LABS: ALT 13 U/L (4-34); AST 101 U/L (14-36); African American GFR (CKD) >90 (>60 ml/min/1.73 sqM); Albumin 2.9 g/dL (3.5-5.0); Albumin/Globulin Ratio 1.3; Alkaline Phosphatase 185 U/L (38-126); Anion Gap 13 mmol/L; Blood Urea Nitrogen 2 mg/dL (7-17); Calcium 7.7 mg/dL (8.4-10.2); Carbon Dioxide 18 mmol/L (22-30); Chloride 106 mmol/L (98-107); Globulin 2.3 g/dL; Glucose 82 mg/dL (74-99); Magnesium 1.2 mg/dL (1.6-2.3); Non-African American GFR(CKD) >90 (>60 ml/min/1.73 sqM); Potassium 3.5 mmol/L (3.5-5.1); Sodium 137 mmol/L (137-145); Total Protein 5.2 g/dL (6.3-8.2)
[2024-10-27 03:31] LABS: HGB 9.0 g/dL (12.0-15.0)
[2024-10-27 08:01] VITALS: PULSE 116
[2024-10-27] MEDS: oxyCODONE-APAP 10-325MG 1 EACH TAB PO PRN (08:25)
[2024-10-27] MEDS: ENOXAPARIN 40 MG/0.4 ML SYRINGE SQ SCH (08:33)
[2024-10-27] MEDS: MAGNESIUM SULFATE-D5W PMX 1 GM in DEXTROSE/WATER 1 100ML.BAG IVPB SCH (10:11)
[2024-10-27 12:40] VITALS: BP 135/88; TEMP 97.4
--- NOTE | 2024-10-27 15:08 | P.PN ---
Subjective Progress Note Date: 10/27/24 Principal diagnosis: Right ureteral calculus, UTI The patient underwent ureteroscopic removal of her right ureteral calculus yesterday. A ureteral stent was placed. She continues to receive ceftriaxone. She continues to experience left-sided abdominal pain. She denies dysuria and right flank pain. She reports slight hematuria, and is aware that this is expected. She denies nausea and tolerated breakfast. Objective - Vital Signs Vital signs: Vital Signs Temp 100.0 F H 10/27/24 08:00 Pulse 116 H 10/27/24 08:00 Resp 18 10/27/24 08:00 BP 144/103 10/27/24 08:00 Pulse Ox 96 10/27/24 01:50 FiO2 Intake & Output 10/26/24 10/27/24 10/27/24 18:59 06:59 18:59 Intake Total 200 1000 Output Total 0 Balance 200 1000 Intake: IV 200 Oral 1000 Output: Estimated Blood Loss 0 Other: Voiding Method Toilet Toilet # Voids 5 3 - Constitutional General appearance: Present: average body habitus, cooperative, no acute distress - Psychiatric Psychiatric: Present: A&O x's 3 - Labs CBC & Chem 7: 10/27/24 02:44 10/27/24 02:44 Labs: Abnormal Lab Results - Last 24 Hours (Table) 10/26/24 10/26/24 10/26/24 Range/Units 02:43 02:43 10:08 WBC 15.17 H (4.50-10.00) X 10*3/uL RBC 2.82 L (4.10-5.20) X 10*6/uL Hgb 9.3 L (12.0-15.0) g/dL Hct 30.1 L (37.2-46.3) % MCV 106.7 H (80.0-97.0) FL MCH 33.0 H (27.0-32.0) pg MCHC 30.9 L (32.0-37.0) g/dL RDW 21.1 H (11.5-14.5) % MPV (9.5-12.2) fL Immature Gran # 0.10 H (0.00-0.04) X 10*3/uL Neutrophils # 12.84 H (1.80-7.70) X 10*3/uL Monocytes # 1.13 H (0.20-1.00) X 10*3/uL Potassium 3.1 L (3.5-5.5) mmol/L Carbon Dioxide 19.1 L (21.6-31.8) mmol/L BUN 4.8 L (9.0-27.0) mg/dL BUN/Creatinine Ratio 6.86 L (12.00-20.00) Ratio Calcium 5.7 A* (8.7-10.3) mg/dL Ionized Calcium Katya 3.5 L* (4.5-5.3) mg/dL Magnesium (1.6-2.3) mg/dL Total Bilirubin (0.2-1.3) mg/dL AST (14-36) U/L Alkaline Phosphatase (38-126) U/L Total Protein 5.0 L (6.2-8.2) g/dL Albumin 3.1 L (3.8-4.9) g/dL 10/27/24 10/27/24 Range/Units 02:44 02:44 WBC 17.81 H (4.50-10.00) X 10*3/uL RBC 2.62 L (4.10-5.20) X 10*6/uL Hgb 9.0 L D (12.0-15.0) g/dL Hct 27.0 L (37.2-46.3) % MCV 103.1 H (80.0-97.0) FL MCH 34.4 H (27.0-32.0) pg MCHC (32.0-37.0) g/dL RDW 20.4 H (11.5-14.5) % MPV 9.4 L (9.5-12.2) fL Immature Gran # (0.00-0.04) X 10*3/uL Neutrophils # (1.80-7.70) X 10*3/uL Monocytes # (0.20-1.00) X 10*3/uL Potassium (3.5-5.5) mmol/L Carbon Dioxide 18 L (21.6-31.8) mmol/L BUN 2 L (9.0-27.0) mg/dL BUN/Creatinine Ratio (12.00-20.00) Ratio Calcium 7.7 L (8.7-10.3) mg/dL Ionized Calcium Katya (4.5-5.3) mg/dL Magnesium 1.2 L (1.6-2.3) mg/dL Total Bilirubin 2.1 H (0.2-1.3) mg/dL AST 101 H (14-36) U/L Alkaline Phosphatase 185 H (38-126) U/L Total Protein 5.2 L (6.2-8.2) g/dL Albumin 2.9 L (3.8-4.9) g/dL Assessment and Plan (1) Ureteral stone Current Visit: Yes Status: Acute Code(s): N20.1 - CALCULUS OF URETER SNOMED Code(s): 91992778 (2) Hydronephrosis with renal and ureteral calculous obstruction Current Visit: Yes Status: Acute Code(s): N13.2 - HYDRONEPHROSIS WITH RENAL AND URETERAL CALCULOUS OBSTRUCTION SNOMED Code(s): 690978955 Plan: Continue ceftriaxone, pending culture results. The patient will need to be discharged home on appropriate oral antibiotics, and arrangements will be made for her to undergo office cystoscopy with stent removal in 1 week.
--- NOTE | 2024-10-27 15:13 | P.DS ---
Providers Date of admission: 10/23/24 18:12 Expected date of discharge: 10/27/24 Attending physician: Kirby Delacruz Consults: 10/23/24 18:11 Consult Physician Urgent Consulting Provider: Martin Brian Consult Reason/Comments: ureteral stone Do you want consulting provider notified?: Yes, Notify in am Primary care physician: [facility] Course: 39 year old F with PMH of EtOH abuse presents to the ED for abdominal pain. In the ED she underwent extensive evaluation. BP 141/98, HR 108, T 98.2F, RR 18, 98% on RA. Labs significant for WBC 11.78, RBC 3.49, Hg 11.8, Hct 34.8, MCV 99.7, PT 12.8, INR 1.2, Cl 108, bicarb 15, Lactic acid 2.7-2.4-1.1, AST 54, Lipase 8292. UA large LE with > [address] AP showed mild right hydro with obstructing 3 mm calculus, fat stranding n the upper abdomen correlating with pancreatitis. Patient was admitted for further workup and management. Started on Rocephin and IV hydration. Urology consulted, underwent right ureteroscopy with removal of right ureteral calculus and right ureteral stent insertion. Her abdominal pain improved. Unfortunately urine culture or blood culture was not collected until 10/26. UCx did come back negative. She did have hypokalemia and hypomagnesemia with hypocalcium which was replaced. 10/27 Patient was seen and examined. Reports 09/29 abdominal pain. Tolerating regular diet well. CBC, CMP significant for WBC 17.81, RBC 2.62, Hg 9, Hct 27, MCV 103.1, bicarb 18, BUN 2, Ca 7.7, Mag 1.2, T. Bili 2.1, AST 101, alb 2.9. Discharge Plan: Ideally I would like the patient to stay overnight to re-check electrolytes, WBC count and liver enzymes in the AM but patient is adamant about going home today. Percocet PRN x 3 days for pain. Will prescribe Cipro 500 mg PO BID x 10 days (total 14 days antibiotics). Plans for stent removal in 1 week, follow up with Dr. Poole within 1 week of discharge. Repeat CMP and Mag within 3 days to be followed up by PCP regarding electrolyte abnormalities and transaminitis. General: non toxic, no distress, appears at stated age Derm: warm, dry Head: atraumatic, normocephalic, symmetric Eyes: EOMI, no lid lag, anicteric sclera Mouth: no lip lesion, mucus membranes moist Cardiovascular: S1S2 tachy, no murmur Lungs: Decreased BS bilateral, no rhonchi, no rales , no accessory muscle use Abd: Soft. Non tender to palpation. Ext: no gross muscle atrophy, no edema, no contractures Neuro: no focal neuro deficits Psych: Alert, oriented, appropriate affect Discharge Diagnosis: Sepsis due to complicated UTI from obstructing nephrolithiasis with right hydronephrosis Alcohol induced pancreatitis Hypocalcemia Hypokalemia Hypomagnesemia Macrocytic anemia likely due to EtOH abuse Alcohol withdrawal This complex discharge took 35 minutes to complete. Patient Condition at Discharge: Stable Plan - Discharge Summary Discharge Rx Participant: No New Discharge Prescriptions: New Ciprofloxacin HCl [Cipro] 500 mg PO Q12HR 10 Days #20 tab oxyCODONE-APAP 10-325MG [Percocet 10-325 mg] 1 each PO Q6HR PRN #12 tab PRN Reason: Moderate Pain (Scale 4 To 6) Continue Omeprazole 40 mg PO DAILY buPROPion HCL [buPROPion HCL SR] 150 mg PO Q12HR Topiramate 100 mg PO BID Naproxen [EC-Naprosyn] 500 mg PO BID PRN PRN Reason: Pain Cetirizine HCl [Zyrtec] 10 mg PO DAILY Discharge Medication List Cetirizine HCl [Zyrtec] 10 mg PO DAILY 10/23/24 [History] Naproxen [EC-Naprosyn] 500 mg PO BID PRN 10/23/24 [History] Omeprazole 40 mg PO DAILY 10/23/24 [History] Topiramate 100 mg PO BID 10/23/24 [History] buPROPion HCL [buPROPion HCL SR] 150 mg PO Q12HR 10/23/24 [History] Ciprofloxacin HCl [Cipro] 500 mg PO Q12HR 10 Days #20 tab 10/27/24 [Rx] oxyCODONE-APAP 10-325MG [Percocet 10-325 mg] 1 each PO Q6HR PRN #12 tab 10/27/24 [Rx] Follow up Appointment(s)/Referral(s): Alex Poole MD [STAFF PHYSICIAN] - 1 Week Jimenez Teresa MD [Primary Care Provider] - 1-2 days Ambulatory/Diagnostic Orders: Comprehensive Metabolic Panel [LAB.AMB] Time Frame: 3 Days, Location: None Selected Magnesium [LAB.AMB] Time Frame: 3 Days, Location: None Selected Activity/Diet/Wound Care/Special Instructions: Repeat CMP and Mag within 3 days, follow up results with PCP. Follow up with PCP within 1-2 days of discharge. Follow up with Dr. Poole within 7 days of discharge. Discharge Disposition: HOME SELF-CARE
== END 2024-10-27 16:00 | disposition home or self-care (01) | DRG 853 ==
LOC: EC 14:57 → 5NMEDONC 18:11 → OBSVTOIN 18:12 → 6NMEDSUR 18:47 → 4SSUR 20:51
PROVIDERS: ADMIT Student in an Organized Health Care Education/Training Program; ATTEND Student in an Organized Health Care Education/Training Program
PROC: HZ2ZZZZ Detoxification Services for Substance Abuse Treatment (ICD-10-PCS; 2024-10-23)
PROC: 0T768DZ Dilation of Right Ureter with Intraluminal Device, Via Natural or Artificial Opening Endoscopic (ICD-10-PCS; 2024-10-26)
PROC: 0TC68ZZ Extirpation of Matter from Right Ureter, Via Natural or Artificial Opening Endoscopic (ICD-10-PCS; 2024-10-26)
PROC: BT1D1ZZ Fluoroscopy of Right Kidney, Ureter and Bladder using Low Osmolar Contrast (ICD-10-PCS; principal; 2024-10-26 14:05)
DX: A41.9 Sepsis, unspecified organism (principal); K85.20 Alcohol induced acute pancreatitis without necrosis or infection; E87.20 Acidosis, unspecified; F10.139 Alcohol abuse with withdrawal, unspecified; D53.9 Nutritional anemia, unspecified; N13.6 Pyonephrosis; N20.2 Calculus of kidney with calculus of ureter; E83.51 Hypocalcemia; Y90.6 Blood alcohol level of 120-199 mg/100 ml; E83.42 Hypomagnesemia; R74.01 Elevation of levels of liver transaminase levels; E87.6 Hypokalemia; F90.9 Attention-deficit hyperactivity disorder, unspecified type; Z79.899 Other long term (current) drug therapy
CPT/HCPCS: 36415; 74018; 74177; 80053; 80320; 81001; 81025; 82306; 82330; 82365; 82607; 82747; 83605; 83690; 83735; 83970; 85025; 85027; 85610; 87040; 87086; 96361; 96374; 96375; 96376; 99285